=== PATIENT | male | born 1970 | race Asian ===

== ENCOUNTER 2019-05-29 17:59 | Emergency (ER) | payer OTHER ==
[~2019-05-29 17:59] MED LIST: LISI1TAB23 PO
--- NOTE | 2019-05-29 18:18 | ED.ADGEN ---
Past History Past Medical History: Hypertension Past Surgical History: Other Alcohol Use: Occasionally Drug Use: None Adult General Chief Complaint Chief Complaint ".. I was watching the Chief game... and notice some water spots on the cei ling.. well at half time.. I was going to jump up on the room and replace any shingles... that needed replaced... but on the way... the ladder slipped out and I fell on my Lt. side.. hard.. 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 Patient localizes pain to left chest wall and left shoulder. Distal neurovascular intact. Patient is ambulatory. Patient denies any bleeding tenderness. Patient does have history of previous stroke studies has no known sequela . No other injuries reported. Review of Systems Review of Systems Constitutional: Denies fever or chills [] Eyes: Denies change in visual acuity, redness, or eye pain [] HENT: Denies nasal congestion or sore throat [] Respiratory: Denies cough or shortness of breath [] Cardiovascular: No additional information not addressed in HPI []complaints of chest wall tenderness GI: Denies abdominal pain, nausea, vomiting, bloody stools or diarrhea [] : Denies dysuria or hematuria [] Musculoskeletal: Denies back pain or joint pain [] Integument: Denies rash or skin lesions [] Neurologic: Denies headache, focal weakness or sensory changes [] Endocrine: Denies polyuria or polydipsia [] All other systems were reviewed and found to be within normal limits, except as documented in this note. Family History Family History Noncontributory Current Medications Current Medications Current Medications Medications (Trade) Dose Ordered Sig/Chemo Start Time Stop Time Status Last Admin Dose Admin Acetaminophen (Tylenol) 1,000 mg 1X ONCE 05/29/19 19:00 05/29/19 19:04 DC 05/29/19 19:10 1,000 MG Morphine Sulfate (Morphine 10mg Syringe) 10 mg 1X ONCE 05/29/19 20:00 05/29/19 20:11 DC 05/29/19 20:50 10 MG Allergies Allergies Allergies Coded Allergies Type Severity Reaction Last Updated Verified No Known Drug Allergies 01/29/16 No Physical Exam Physical Exam Constitutional: Well developed, well nourished, in moderately acute distress, non-toxic appearance. [] HENT: Normocephalic, atraumatic, bilateral external ears normal, oropharynx m oist, no oral exudates, nose normal. [] Eyes: PERRLA, EOMI, conjunctiva normal, no discharge. [] Neck: Normal range of motion, no tenderness, supple, no stridor. [] Cardiovascular:Heart rate regular rhythm, no murmur [] Lungs & Thorax: Bilateral breath sounds equal apex on auscultation []. Trachea is midline. Left chest wall tenderness. Some basilar crackles on left Abdomen: Bowel sounds normal, soft, no tenderness, no masses, no pulsatile masses. [] Skin: Warm, dry, no erythema, no rash. [] Back: No tenderness, no CVA tenderness. [] Extremities: No tenderness, no cyanosis, no clubbing, ROM intact, no edema. [] Except findings of left shoulder tenderness. Does have deltoid sensation. Neurologic: Alert and oriented X 3, normal motor function, normal sensory function, no focal deficits noted. [] Psychologic: Affect anxious, judgement normal, mood normal. [] Current Patient Data Vital Signs Vital Signs Date Time Temp Pulse Resp B/P (MAP) Pulse Ox O2 Delivery O2 Flow Rate FiO2 05/29/19 20:51 97.7 60 24 155/94 (114) 95 Room Air EKG EKG [] Radiology/Procedures Radiology/Procedures [address] [id number] IMAGING REPORT Signed PATIENT: ZAKIA HORNE JACCOUNT: [id number] : 1970 LOCATION: ER AGE: 49 SEX: M EXAM STATUS: PRE ER ORD. PHYSICIAN: DAREN BOWIE MD REASON: Fall off ladder, LEFT SIDE CHEST & LEFT SHOULDER PAIN PROCEDURE: CT CHEST WO CONTRAST EXAM: CT Chest without IV contrast CLINICAL HISTORY: Fall off ladder, LEFT SIDE CHEST LEFT SHOULDER PAIN COMPARISON: None. TECHNIQUE: CT of the chest without intravenous contrast. Axial, coronal and sagittal reformatted images were generated. ---PQRS compliance statement - One or more of the following individualized dose reduction techniques were utilized for this study: 1. Automated exposure control 2. Adjustment of the mA and/or kV according to patient size 3. Use of iterative reconstruction technique--- FINDINGS: Lack of intravenous contrast limits evaluation of solid organs, vasculature, and lymph nodes. Chest: Heart is not enlarged. No pericardial effusion. No pleural effusion or pneumothorax. No thoracic lymphadenopathy. Acute fracture of the left posterior first, second, third, fourth, fifth, sixth ribs. Associated subjacent parenchymal airspace opacities are seen, likely parenchymal contusions. Linear opacities in the lingula likely scarring/atelectasis. In addition anterior left second and third rib fractures are also likely acute. Visualized Upper abdomen: Hepatic hypoattenuation may be seen with hepatic steatosis. Focal fatty sparing in the gallbladder fossa a few mildly prominent portacaval and periportal lymph nodes are seen, possibly reactive. For example a. Portal lymph node measures 1.4 cm in short axis. High density material dependently within the gallbladder likely sludge. IMPRESSION: Posterior left first-sixth rib fractures with subjacent parenchymal airspace opacities, likely contusion. No lobar consolidation. Electronically signed by: Ari Patel MD (05/29/2019 7:47 PM) [facility] DICTATED AND SIGNED BY: ARI PATEL MD DATE: 05/29/191946 CC: DAREN BOWIE MD; ZAKIA ALMONTE MD ~ [][address] [address] IMAGING REPORT Signed PATIENT: ZAKIA HORNE JACCOUNT: [id number] : 1970 LOCATION: ER AGE: 49 SEX: M EXAM STATUS: PRE ER ORD. PHYSICIAN: DAREN BOWIE MD REASON: fall off ladder Lt. side PROCEDURE: SHOULDER 2+V LEFT SHOULDER 2+V LEFT 05/29/2019 7:00 PM INDICATION: Fall off ladder COMPARISON: Chest radiograph 05/29/2019 TECHNIQUE: 3 views of the left shoulder are provided. FINDINGS: There is no acute fracture or dislocation of the glenohumeral and acromioclavicular joints. Bone mineralization is within normal limits. Mild degenerative changes of the acromioclavicular joint. Regional soft tissues are within normal limits. There is no soft tissue gas or osseous erosion. IMPRESSION: No acute fracture or dislocation involving the glenohumeral and acromioclavicular joints. Electronically signed by: Jeanette Sweet MD (05/29/2019 7:46 PM) [email or web address] DICTATED AND SIGNED BY: JEANETTE SWEET MD DATE: 05/29/191945 CC: DAREN BOWIE MD; ZAKIA ALMONTE MD ~ IMAGING REPORT Signed PATIENT: ZAKIA HORNE JACCOUNT: [id number] : 1970 LOCATION: ER AGE: 49 SEX: M EXAM STATUS: PRE ER ORD. PHYSICIAN: DAREN BOWIE MD REASON: fall off ladder Lt. side PROCEDURE: CHEST PA & LATERAL Chest radiograph 05/29/2019 7:00 PM INDICATION: Fall off ladder with pain on left side COMPARISON: None available TECHNIQUE: Frontal and lateral views of the chest are provided. FINDINGS: The cardiomediastinal silhouette is within normal limits. There are no pleural effusions. There is no pulmonary vascular congestion. There is no pneumothorax. Left lateral fifth, sixth and seventh nondisplaced rib fractures are identified with adjacent subcutaneous gas. No definite pneumothorax. Pulmonary contusion versus subsegmental atelectasis of the left lung base. IMPRESSION: Left lateral fifth, sixth and seventh nondisplaced rib fractures. There is subsegmental atelectasis versus pulmonary contusion of left lung base. Electronically signed by: Jeanette Sweet MD (05/29/2019 7:45 PM) [email or web address] DICTATED AND SIGNED BY: JEANETTE SWEET MD DATE: 05/29/191944 CC: DAREN BOWIE MD; ZAKIA ALMONTE MD ~ Course & Med Decision Making Course & Med Decision Making Pertinent Labs and Imaging studies reviewed. (See chart for details) Patient elects to go home. Patient take Tylenol and ibuprofen for pain. May have Vicoprofen up 4 times a day for marked pain. Patient return if any concerns. Patient follow-up primary care. Patient has not bind ribs. Must follow up. [] Final Impression Final Impression 1. Fall[] 2. Multiple rib fractures 3. Pulmonary contusion Dragon Disclaimer Dragon Disclaimer This electronic medical record was generated, in whole or in part, using a voice recognition dictation system. Dragon Disclaimer This chart was dictated in whole or in part using Voice Recognition software in a busy, high-work load, and often noisy Emergency Department environment. It may contain unintended and wholly unrecognized errors or omissions. DAREN BOWIE MD May 29, 2019 18:18
[2019-05-29] MEDS ORDERED: ACETAMINOPHEN 500 MG TABLET PO ONE (19:00)
[2019-05-29] MEDS ORDERED: MORPHINE SULFATE 10 MG/ML SYRINGE. SQ ONE ×2 (19:15→20:00)
[2019-05-29] MEDS ORDERED: MORPHINE SULFATE 10 MG/ML SYRINGE. ONE (19:17)
--- NOTE | 2019-05-29 19:48 | RAD ---
Chest radiograph 05/29/2019 7:00 PM INDICATION: Fall off ladder with pain on left side COMPARISON: None available TECHNIQUE: Frontal and lateral views of the chest are provided. FINDINGS: The cardiomediastinal silhouette is within normal limits. There are no pleural effusions. There is no pulmonary vascular congestion. There is no pneumothorax. Left lateral fifth, sixth and seventh nondisplaced rib fractures are identified with adjacent subcutaneous gas. No definite pneumothorax. Pulmonary contusion versus subsegmental atelectasis of the left lung base. IMPRESSION: Left lateral fifth, sixth and seventh nondisplaced rib fractures. There is subsegmental atelectasis versus pulmonary contusion of left lung base. Electronically signed by: Nadira Sanchez MD (05/29/2019 7:45 PM) [id number]
--- NOTE | 2019-05-29 19:49 | RAD ---
SHOULDER 2+V LEFT 05/29/2019 7:00 PM INDICATION: Fall off ladder COMPARISON: Chest radiograph 05/29/2019 TECHNIQUE: 3 views of the left shoulder are provided. FINDINGS: There is no acute fracture or dislocation of the glenohumeral and acromioclavicular joints. Bone mineralization is within normal limits. Mild degenerative changes of the acromioclavicular joint. Regional soft tissues are within normal limits. There is no soft tissue gas or osseous erosion. IMPRESSION: No acute fracture or dislocation involving the glenohumeral and acromioclavicular joints. Electronically signed by: Nadira Sanchez MD (05/29/2019 7:46 PM) [facility]
--- NOTE | 2019-05-29 19:50 | RAD ---
EXAM: CT Chest without IV contrast CLINICAL HISTORY: Fall off ladder, LEFT SIDE CHEST LEFT SHOULDER PAIN COMPARISON: None. TECHNIQUE: CT of the chest without intravenous contrast. Axial, coronal and sagittal reformatted images were generated. ---PQRS compliance statement - One or more of the following individualized dose reduction techniques were utilized for this study: 1. Automated exposure control 2. Adjustment of the mA and/or kV according to patient size 3. Use of iterative reconstruction technique--- FINDINGS: Lack of intravenous contrast limits evaluation of solid organs, vasculature, and lymph nodes. Chest: Heart is not enlarged. No pericardial effusion. No pleural effusion or pneumothorax. No thoracic lymphadenopathy. Acute fracture of the left posterior first, second, third, fourth, fifth, sixth ribs. Associated subjacent parenchymal airspace opacities are seen, likely parenchymal contusions. Linear opacities in the lingula likely scarring/atelectasis. In addition anterior left second and third rib fractures are also likely acute. Visualized Upper abdomen: Hepatic hypoattenuation may be seen with hepatic steatosis. Focal fatty sparing in the gallbladder fossa a few mildly prominent portacaval and periportal lymph nodes are seen, possibly reactive. For example a. Portal lymph node measures 1.4 cm in short axis. High density material dependently within the gallbladder likely sludge. IMPRESSION: Posterior left first-sixth rib fractures with subjacent parenchymal airspace opacities, likely contusion. No lobar consolidation. Electronically signed by: Ari Andrade MD (05/29/2019 7:47 PM) [facility]
[2019-05-29] MEDS ORDERED: HYDR-1179 PO (20:02)
[2019-05-29 20:51] VITALS: BP 155/94
== END 2019-05-29 20:54 | disposition home or self-care (01) ==
LOC: ER 17:59
DX: S22.42XA Multiple fractures of ribs, left side, initial encounter for closed fracture (principal); S27.321A Contusion of lung, unilateral, initial encounter; M25.512 Pain in left shoulder; I10 Essential (primary) hypertension; W11.XXXA Fall on and from ladder, initial encounter; Y93.89 Activity, other specified; Y92.89 Other specified places as the place of occurrence of the external cause; Y99.0 Civilian activity done for income or pay
CPT/HCPCS: 71046; 71250; 73030; 96372; 99284; J2270